=== PATIENT | female | born 1980 | race Caucasian/White ===

== ENCOUNTER 2018-10-09 12:49 | Emergency (ER) | payer BC ==
[~2018-10-09] VITALS: Ht 162.6 cm; Wt 73.5 kg
[2018-10-09 13:07] VITALS: Ht 162.6 cm; Wt 73.5 kg
[2018-10-09 14:46] LABS: BASOPHIL % 0.6 % (0-2); PLATELET COUNT 258 x10^3mcL (130-400)
[2018-10-09 14:56] LABS: RED CELL DISTRIBUTION WIDTH 19.4 % (11.5-14.5)
[2018-10-09 15:16] LABS: CALCIUM 9.1 mg/dL (8.5-10.1); CARBON DIOXIDE 27.8 mmol/L (21-32); CHLORIDE SERUM 105 mmol/L (98-107); CREATININE SERUM 0.7 mg/dL (0.6-1.0); GFR1 > 60 mL/min; GLUCOSE SERUM 103 mg/dL (74-106); POTASSIUM SERUM 4.3 mmol/L (3.5-5.1); SODIUM SERUM 142 mmol/L (136-145)
[2018-10-09 15:17] LABS: C REACTIVE PROTEIN 0.6 mg/dL (<=0.9)
[2018-10-09 18:32] VITALS: BP 136/84
== END 2018-10-09 18:32 | disposition home or self-care (01) ==
LOC: ED 12:49
PROVIDERS: Emergency Medicine
DX: R59.0 Localized enlarged lymph nodes (principal); D50.9 Iron deficiency anemia, unspecified
CPT/HCPCS: 86308; J1885; Q9967

== ENCOUNTER 2018-12-19 03:21 | Emergency (ER) | payer BC ==
[~2018-12-19] VITALS: Ht 160 cm; Wt 73.0 kg
[2018-12-19 03:25] VITALS: Ht 160 cm; Wt 73.0 kg
[2018-12-19 05:20] LABS: BASOPHIL % 0.1 % (0-2); PLATELET COUNT 289 x10^3mcL (130-400); RED CELL DISTRIBUTION WIDTH 19.2 % (11.5-14.5)
[2018-12-19 05:20] LABS: microscopic required? NO
[2018-12-19 05:24] LABS: UA SPECIFIC GRAVITY 1.025 (1.005-1.035); urine erythrocyte NEGATIVE (NEGATIVE)
[2018-12-19 05:30] LABS: CALCIUM 8.7 mg/dL (8.5-10.1); CARBON DIOXIDE 29.3 mmol/L (21-32); CHLORIDE SERUM 103 mmol/L (98-107); CREATININE SERUM 0.6 mg/dL (0.6-1.0); GFR1 > 60 mL/min; GLUCOSE SERUM 104 mg/dL (74-106); POTASSIUM SERUM 3.6 mmol/L (3.5-5.1); SODIUM SERUM 140 mmol/L (136-145)
[2018-12-19 05:34] LABS: ALBUMIN 3.9 g/dL (3.4-5.0); ALKALINE PHOSPHATASE 102 U/L (46-116); ALT/SGPT 42 U/L (14-59); AST/SGOT 58 U/L (15-37); BILIRUBIN TOTAL 0.23 mg/dL (0.20-1.00); LIPASE 88 IU/L (73-393)
[2018-12-19 07:28] VITALS: BP 134/94
== END 2018-12-19 07:28 | disposition home or self-care (01) ==
LOC: ED 03:21
PROVIDERS: Emergency Medicine
DX: K80.20 Calculus of gallbladder without cholecystitis without obstruction (principal)
CPT/HCPCS: 36415; J1885; Q0092